=== PATIENT | female | born 1965 | race Caucasian/White ===

== ENCOUNTER 2023-05-13 08:48 | Day surgery (SDC) | payer MEDICAID ==
[~2023-05-13] VITALS: Ht 172.7 cm; Wt 78.0 kg
[2023-05-13] MEDS ORDERED: TORS100T15 PO (09:48)
[2023-05-13] MEDS ORDERED: METO50CA PO (09:48)
[2023-05-13] MEDS ORDERED: GABA300C (09:48)
[2023-05-13] MEDS ORDERED: PRE5T PO (09:48)
[2023-05-13] MEDS ORDERED: SULF500T59 PO (09:48)
[2023-05-13] MEDS ORDERED: ALBU90AE2 (09:48)
[2023-05-13] MEDS ORDERED: OMEP40CA21 PO (09:48)
[2023-05-13] MEDS ORDERED: RIVA20TA PO (09:48)
[2023-05-13] MEDS ORDERED: TIOT18CA3 (09:49)
[2023-05-13] MEDS ORDERED: TOCI162P (09:52)
[2023-05-13 10:06] VITALS: BP 133/83; PULSE 88; RESP 16; TEMP 98.2; O2SAT 97
[2023-05-13 10:55] VITALS: BP 119/81; PULSE 80; RESP 16; O2SAT 95
[2023-05-13 11:10] VITALS: BP 120/79; PULSE 76; RESP 16; O2SAT 96
[2023-05-13 16:41] VITALS: RESP 16; O2SAT 97
== END 2023-05-13 11:30 | disposition home or self-care (01) ==
LOC: SSTAY O 08:48
PROVIDERS: ATTEND Radiology Vascular & Interventional Radiology
DX: R22.41 Localized swelling, mass and lump, right lower limb (principal); I10 Essential (primary) hypertension; E11.9 Type 2 diabetes mellitus without complications; E03.9 Hypothyroidism, unspecified; J44.9 Chronic obstructive pulmonary disease, unspecified; M06.9 Rheumatoid arthritis, unspecified; E87.6 Hypokalemia; Z88.1 Allergy status to other antibiotic agents; Z88.8 Allergy status to other drugs, medicaments and biological substances; Z79.899 Other long term (current) drug therapy
CPT/HCPCS: 20206; 27040; 76942; J7030